=== PATIENT | male | born 1930 | race Two or more races ===

== ENCOUNTER 2016-09-28 13:12 | Inpatient (IN) | payer OTHER, MEDICAID ==
[~2016-09-28] VITALS: Ht 162.6 cm; Wt 62.6 kg
[~2016-09-28 13:12] MED LIST: ACET-868 PO; ATOR20TA PO; BISA10SU8 RC; CALC-883 PO; CRAN450T3 PO; DOCU-25 PO; FERR-58 PO; FINA5TAB3 PO; METO25TA6 PO; NA P133E RC; ONDA4TAB5 PO; OXYB5TAB11 PO; PANT40TA4 PO; POLY119P2 PO; POTA20TA83 PO; TAMS0.4C34 PO
[2016-09-28 13:35] LABS: BASOPHILS % (AUTO) 0.7 % (0.0-2.0); DIFF TOTAL % 100 %; EOSINOPHILS # (AUTO) 0.1 /CMM (0.0-0.7); EOSINOPHILS % (AUTO) 1.8 % (0.0-6.0); HEMATOCRIT 35 % (39-51); HEMOGLOBIN 11.8 g/dL (13.5-17.5); LYMPHOCYTES # (AUTO) 1.6 /CMM (0.8-4.8); LYMPHOCYTES % (AUTO) 33.9 % (20.0-44.0); MEAN CORPUSCULAR HEMOGLOBIN 31 PG (26.0-33.0); MEAN CORPUSCULAR HGB CONC 34 g/dl (31.0-36.0); MEAN CORPUSCULAR VOLUME 92 fL (80-96); MONOCYTES # (AUTO) 0.2 /CMM (0.1-1.30); MONOCYTES % (AUTO) 4.8 % (2.0-12.0); NEUTROPHILS # (AUTO) 2.9 /CMM (1.8-8.9); NEUTROPHILS % (AUTO) 58.8 % (43.0-81.0); PLATELET COUNT (AUTO) 145 /CMM (150-450); RED BLOOD CELL COUNT(AUTO) 3.82 MIL/uL (4.5-6.0); WHITE BLOOD COUNT (AUTO) 4.8 K/uL (4.3-11.0)
[2016-09-28 13:43] LABS: ANION GAP 12 (5-14); CALCIUM, SERUM 9.1 mg/dL (8.5-10.1); CARBON DIOXIDE 24 mmol/L (21-32); CHLORIDE 108 mmol/L (98-107); CREATININE 1.2 mg/dL (0.6-1.3); GLUCOSE 101 mg/dL (74-106); POTASSIUM 4.4 mmol/L (3.5-5.1); SODIUM SERUM 140 mmol/L (136-145); UREA NITROGEN, BLOOD 28 mg/dL (7-18)
[2016-09-28] MEDS ORDERED: LORA-258 PO (14:16)
[2016-09-28] MEDS ORDERED: DIVA250T6 PO (14:16)
[2016-09-28] MEDS ORDERED: MELA3TAB PO (14:16)
[2016-09-28] MEDS ORDERED: MAG30ORA PO (14:16)
[2016-09-28] MEDS ORDERED: LISI10TA5 PO (14:16)
[2016-09-28] MEDS ORDERED: QUET25TA PO (14:16)
[2016-09-28] MEDS ORDERED: MAGN400O6 PO (14:16)
[2016-09-28 14:18] LABS: TROPONIN I < 0.017 ng/mL (0.00-0.056)
[2016-09-28 15:25] VITALS: BP 152/66
[2016-09-28 16:00] VITALS: BP 152/66
[2016-09-28] MEDS ORDERED: LORAZEPAM 0.5 MG TABLET PO PRN (16:00)
[2016-09-28] MEDS ORDERED: MAG HYDROX/AL HYDROX/SIMETH 30 ML UDC PO PRN (16:00)
[2016-09-28] MEDS ORDERED: MAGNESIUM HYDROXIDE 30 ML UDC PO PRN ×2 (16:00→19:30)
[2016-09-28] MEDS ORDERED: ACETAMINOPHEN 325 MG TABLET PO PRN ×2 (16:00→19:30)
[2016-09-28] MEDS ORDERED: MAG HYDROX/AL HYDROX/SIMETH 30 ML UDC PO SCH (19:30)
[2016-09-28 20:26] VITALS: BP 115/56
[2016-09-28] MEDS: ATORVASTATIN 10 MG TABLET PO SCH (21:47)
[2016-09-28] MEDS ORDERED: Medication Not On Formulary EA (Melatonin 3 MG) PO SCH (22:00)
[2016-09-29 08:00] VITALS: BP 131/60
[2016-09-29 08:06] LABS: ALBUMIN 3.4 g/dL (3.4-5.0); BILIRUBIN,TOTAL 0.6 mg/dL (0.2-1.0); CALCIUM, SERUM 8.9 mg/dL (8.5-10.1); CREATININE 1.1 mg/dL (0.6-1.3); POTASSIUM 4.2 mmol/L (3.5-5.1); TOTAL PROTEIN, SERUM 6.6 g/dL (6.4-8.2)
[2016-09-29] MEDS: FINASTERIDE (5 MG) 5 MG TABLET PO SCH (09:43)
[2016-09-29] MEDS: DOCUSATE SODIUM 100 MG CAPSULE PO SCH ×2 (09:43→17:26)
[2016-09-29] MEDS: LISINOPRIL (10MG) 10 MG TABLET PO SCH (09:43)
[2016-09-29 16:00] VITALS: BP 102/61
[2016-09-29] MEDS: QUETIAPINE FUMARATE 25 MG TABLET PO SCH (17:26)
[2016-09-29] MEDS: DIVALPROEX SODIUM 250 MG TABLET.DR PO SCH (17:26)
[2016-09-29 19:51] VITALS: BP 137/62
[2016-09-29] MEDS: ATORVASTATIN 10 MG TABLET PO SCH (21:17)
[2016-09-29] MEDS: TEMAZEPAM 7.5 MG CAPSULE PO PRN (21:18)
[2016-09-30 08:00] VITALS: BP 156/70
[2016-09-30] MEDS: QUETIAPINE FUMARATE 25 MG TABLET PO SCH ×2 (08:26→16:51)
[2016-09-30] MEDS: FINASTERIDE (5 MG) 5 MG TABLET PO SCH (08:27)
[2016-09-30] MEDS: DOCUSATE SODIUM 100 MG CAPSULE PO SCH ×2 (08:27→16:51)
[2016-09-30] MEDS: LISINOPRIL (10MG) 10 MG TABLET PO SCH (08:27)
[2016-09-30] MEDS: DIVALPROEX SODIUM 250 MG TABLET.DR PO SCH ×3 (08:27→16:51)
[2016-09-30 16:04] VITALS: BP 113/46
[2016-09-30 20:21] VITALS: BP 90/51
[2016-09-30] MEDS: ATORVASTATIN 10 MG TABLET PO SCH (22:29)
[2016-09-30] MEDS: TEMAZEPAM 7.5 MG CAPSULE PO PRN (22:29)
[2016-10-01 08:00] VITALS: BP 135/66
[2016-10-01] MEDS: DOCUSATE SODIUM 100 MG CAPSULE PO SCH ×2 (08:40→16:46)
[2016-10-01] MEDS: DIVALPROEX SODIUM 250 MG TABLET.DR PO SCH ×3 (08:40→16:46)
[2016-10-01] MEDS: LISINOPRIL (10MG) 10 MG TABLET PO SCH (08:41)
[2016-10-01] MEDS: FINASTERIDE (5 MG) 5 MG TABLET PO SCH (08:41)
[2016-10-01] MEDS: QUETIAPINE FUMARATE 25 MG TABLET PO SCH ×2 (08:43→16:46)
[2016-10-01 16:00] VITALS: BP 105/59
[2016-10-01 20:00] VITALS: BP 117/45
[2016-10-01] MEDS: ATORVASTATIN 10 MG TABLET PO SCH (21:46)
[2016-10-02 08:00] VITALS: BP 116/55
[2016-10-02] MEDS: QUETIAPINE FUMARATE 25 MG TABLET PO SCH ×2 (08:35→17:27)
[2016-10-02] MEDS: FINASTERIDE (5 MG) 5 MG TABLET PO SCH (08:36)
[2016-10-02] MEDS: LISINOPRIL (10MG) 10 MG TABLET PO SCH (08:36)
[2016-10-02] MEDS: DOCUSATE SODIUM 100 MG CAPSULE PO SCH ×2 (08:36→17:27)
[2016-10-02] MEDS: DIVALPROEX SODIUM 250 MG TABLET.DR PO SCH ×3 (08:36→17:27)
[2016-10-02 16:00] VITALS: BP 133/55
[2016-10-02 20:00] VITALS: BP 127/72
[2016-10-02] MEDS: ATORVASTATIN 10 MG TABLET PO SCH (21:03)
[2016-10-03 08:00] VITALS: BP 117/43
[2016-10-03] MEDS: LISINOPRIL (10MG) 10 MG TABLET PO SCH (08:25)
[2016-10-03] MEDS: DIVALPROEX SODIUM 250 MG TABLET.DR PO SCH ×3 (08:25→17:00)
[2016-10-03] MEDS: DOCUSATE SODIUM 100 MG CAPSULE PO SCH ×2 (08:25→17:00)
[2016-10-03] MEDS: FINASTERIDE (5 MG) 5 MG TABLET PO SCH (08:25)
[2016-10-03] MEDS: QUETIAPINE FUMARATE 25 MG TABLET PO SCH ×2 (08:26→17:00)
[2016-10-03 08:40] LABS: BASOPHILS % (AUTO) 0.1 % (0.0-2.0); DIFF TOTAL % 100 %; EOSINOPHILS # (AUTO) 0.1 /CMM (0.0-0.7); EOSINOPHILS % (AUTO) 2.5 % (0.0-6.0); HEMATOCRIT 30 % (39-51); HEMOGLOBIN 10.5 g/dL (13.5-17.5); LYMPHOCYTES # (AUTO) 1.7 /CMM (0.8-4.8); LYMPHOCYTES % (AUTO) 43.3 % (20.0-44.0); MEAN CORPUSCULAR HEMOGLOBIN 32 PG (26.0-33.0); MEAN CORPUSCULAR HGB CONC 35 g/dl (31.0-36.0); MEAN CORPUSCULAR VOLUME 92 fL (80-96); MONOCYTES # (AUTO) 0.3 /CMM (0.1-1.30); MONOCYTES % (AUTO) 7.4 % (2.0-12.0); NEUTROPHILS # (AUTO) 1.8 /CMM (1.8-8.9); NEUTROPHILS % (AUTO) 46.7 % (43.0-81.0); PLATELET COUNT (AUTO) 142 /CMM (150-450); WHITE BLOOD COUNT (AUTO) 3.9 K/uL (4.3-11.0)
[2016-10-03 09:10] LABS: CALCIUM, SERUM 8.8 mg/dL (8.5-10.1)
[2016-10-03 16:00] VITALS: BP 136/57
[2016-10-03 20:00] VITALS: BP 101/60
[2016-10-03] MEDS: ATORVASTATIN 10 MG TABLET PO SCH (21:16)
[2016-10-04 08:13] VITALS: BP 153/82
[2016-10-04] MEDS: DIVALPROEX SODIUM 250 MG TABLET.DR PO SCH ×3 (09:37→17:07)
[2016-10-04] MEDS: QUETIAPINE FUMARATE 25 MG TABLET PO SCH ×2 (09:37→17:07)
[2016-10-04] MEDS: DOCUSATE SODIUM 100 MG CAPSULE PO SCH ×2 (09:37→17:07)
[2016-10-04] MEDS: FINASTERIDE (5 MG) 5 MG TABLET PO SCH (09:37)
[2016-10-04] MEDS: LISINOPRIL (10MG) 10 MG TABLET PO SCH (09:37)
[2016-10-04 16:01] VITALS: BP 112/60
[2016-10-04 19:52] VITALS: BP 104/47
[2016-10-04] MEDS: ATORVASTATIN 10 MG TABLET PO SCH (21:16)
[2016-10-05 08:00] VITALS: BP 141/59
[2016-10-05 08:58] VITALS: BP 141/59
[2016-10-05] MEDS: LISINOPRIL (10MG) 10 MG TABLET PO SCH (08:58)
[2016-10-05] MEDS: DOCUSATE SODIUM 100 MG CAPSULE PO SCH (08:58)
[2016-10-05] MEDS: DIVALPROEX SODIUM 250 MG TABLET.DR PO SCH ×2 (08:58→12:17)
[2016-10-05] MEDS: FINASTERIDE (5 MG) 5 MG TABLET PO SCH (08:59)
[2016-10-05] MEDS: QUETIAPINE FUMARATE 25 MG TABLET PO SCH (08:59)
== END 2016-10-05 15:50 | DRG 885 ==
LOC: ER 13:14 → GPS 15:10
PROVIDERS: ADMIT Psychiatry & Neurology Psychiatry; ATTEND Family Medicine
DX: F29 Unspecified psychosis not due to a substance or known physiological condition (principal); F02.80 Dementia in other diseases classified elsewhere, unspecified severity, without behavioral disturbance, psychotic disturbance, mood disturbance, and anxiety; N17.0 Acute kidney failure with tubular necrosis; F20.9 Schizophrenia, unspecified; F41.9 Anxiety disorder, unspecified; G30.9 Alzheimer's disease, unspecified; I10 Essential (primary) hypertension; N40.0 Benign prostatic hyperplasia without lower urinary tract symptoms; G89.29 Other chronic pain; F39 Unspecified mood [affective] disorder; E11.9 Type 2 diabetes mellitus without complications; D63.8 Anemia in other chronic diseases classified elsewhere
CPT/HCPCS: 36415; 80048-TC; 80053-TC; 80061-TC; 84484-TC; 85025-TC; 87081-TC; A4606; G0480; Z7610

== ENCOUNTER 2018-04-29 01:04 | Emergency (ER) | payer MEDICARE, OTHER ==
[~2018-04-29] VITALS: Ht 165.1 cm; Wt 77.1 kg
[~2018-04-29 01:04] MED LIST changes: -BISA10SU8 RC; -CALC-883 PO; -CRAN450T3 PO; +DIVA-76 PO; +DOCU-141 PO; -DOCU-25 PO; -FERR-58 PO; +LISI10TA5 PO; +LORA-258 PO; +MAG30ORA PO; +MAGN400O6 PO; +MELA3TAB PO; -METO25TA6 PO; -NA P133E RC; -ONDA4TAB5 PO; -OXYB5TAB11 PO; -PANT40TA4 PO; -POLY119P2 PO; -POTA20TA83 PO; +QUET25TA PO; -TAMS0.4C34 PO
--- NOTE | 2018-04-29 01:05 | NUR ---
ER MD RODRÍGUEZ AT BEDSIDE FOR EVAL
[2018-04-29] MEDS ORDERED: LIDOCAINE HCL/PF 1% 30 ML SDV ONE (01:58)
--- NOTE | 2018-04-29 02:08 | NUR ---
BIB [facility]; PT FOUND ON GROUND, UNKNOWN IF SYNCOPE OR MECHANICAL GLF. LAC ON LEFT FOOT. HYPERTENSIVE BUT OTHERWISE VSS NO ACUTE DISTRESS AT THIS TIME. ALERT BUT [place] R[place] SPEAKING ONLY. SKIN WARM, PALE, AND INTACT. WILL CONTINUE TO MONITOR FOR ANY CHANGES DURING THE SHIFT.
[2018-04-29 02:18] LABS: BASOPHILS % (AUTO) 0.2 % (0.0-2.0); EOSINOPHILS % (AUTO) 0.5 % (0.0-6.0); HEMATOCRIT 39 % (39-51); HEMOGLOBIN 12.3 g/dL (13.5-17.5); LYMPHOCYTES # (AUTO) 0.8 /CMM (0.8-4.8); LYMPHOCYTES % (AUTO) 12.4 % (20.0-44.0); MEAN CORPUSCULAR HEMOGLOBIN 32 PG (26.0-33.0); MEAN CORPUSCULAR HGB CONC 32 g/dl (31.0-36.0); MEAN CORPUSCULAR VOLUME 98 fL (80-96); MONOCYTES # (AUTO) 0.4 /CMM (0.1-1.30); MONOCYTES % (AUTO) 6.4 % (2.0-12.0); NEUTROPHILS # (AUTO) 5.5 /CMM (1.8-8.9); NEUTROPHILS % (AUTO) 80.5 % (43.0-81.0); PLATELET COUNT (AUTO) 140 /CMM (150-450); RDW COEFFICIENT OF VARIATION 12.4 (11.5-15.0); RED BLOOD CELL COUNT(AUTO) 3.92 MIL/uL (4.5-6.0); WHITE BLOOD COUNT (AUTO) 6.8 K/uL (4.3-11.0)
[2018-04-29 02:33] LABS: INR 0.99 (0.87-1.13)
[2018-04-29 02:34] LABS: CARBON DIOXIDE 23 mmol/L (21-32); CHLORIDE 108 mmol/L (98-107); GLUCOSE 142 mg/dL (74-106); POTASSIUM 4.6 mmol/L (3.5-5.1); SODIUM SERUM 143 mmol/L (136-145); UREA NITROGEN, BLOOD 31 mg/dL (7-18)
[2018-04-29 02:38] LABS: ALANINE AMINOTRANSFERASE 20 U/L (12-78); ALBUMIN 3.6 g/dL (3.4-5.0); ALKALINE PHOSPHATASE 61 U/L (46-116); ASPARTATE AMINOTRANSFERASE 17 U/L (15-37); BILIRUBIN,DIRECT 0.1 mg/dL (0.0-0.2); BILIRUBIN,TOTAL 0.5 mg/dL (0.2-1.0)
[2018-04-29 02:39] LABS: TROPONIN I < 0.017 ng/mL (0.00-0.056)
--- NOTE | 2018-04-29 02:49 | NUR ---
ER MD RODRÍGUEZ AT BEDSIDE FOR SUTURING
[2018-04-29] MEDS ORDERED: LIDOCAINE 2% JEL UROJET 10 ML MM ONE (02:54)
--- NOTE | 2018-04-29 03:30 | NUR ---
ER MD RODRÍGUEZ HAS ASKING WHETHER TO ADMIT THIS PATIENT OR NOT. MD MCKEON HAS DECIDED NOT TO ADMIT AND WILL GO BACK TO FACILITY/SNF.
--- NOTE | 2018-04-29 03:37 | NUR ---
transport called [id number]. Addendum: 04/29/18 at 0338 by JUAN A shreyas# [id number]
[2018-04-29 04:38] VITALS: BP 140/79
== END 2018-04-29 04:39 ==
LOC: ER 01:05 → TELE 03:31 → UNDOADMIN 03:31 → ER 04:39
DX: S91.115A Laceration without foreign body of left lesser toe(s) without damage to nail, initial encounter (principal); R55 Syncope and collapse; G30.9 Alzheimer's disease, unspecified; I10 Essential (primary) hypertension; E11.9 Type 2 diabetes mellitus without complications; M62.81 Muscle weakness (generalized); W18.39XA Other fall on same level, initial encounter; Y93.89 Activity, other specified; Y92.89 Other specified places as the place of occurrence of the external cause; Y99.8 Other external cause status
CPT/HCPCS: 12001; 36415; 70450; 71045; 80048; 80076; 84484; 85025; 85730; 87081; 93005; 99285; A4606; A6402; J3490 ×2; Z7610